=== PATIENT | male | born 1950 | race Caucasian/White ===

== ENCOUNTER 2023-05-29 16:39 | Emergency (ER) | payer MEDICARE, MEDICAID ==
[~2023-05-29] VITALS: Ht 172.7 cm; Wt 63.5 kg
[2023-05-29 16:43] VITALS: BP 142/86; PULSE 88; RESP 16; O2SAT 97
== END 2023-05-29 20:45 | disposition home or self-care (01) ==
LOC: MED 16:39
DX: S01.81XA Laceration without foreign body of other part of head, initial encounter (principal); M25.531 Pain in right wrist; W18.30XA Fall on same level, unspecified, initial encounter; Y93.89 Activity, other specified; Y92.89 Other specified places as the place of occurrence of the external cause; Y99.8 Other external cause status
CPT/HCPCS: 12011; 29125; 70450; 72125; 73110; 73130; 99284; Q0092